=== PATIENT | female | born 1990 | race Caucasian/White ===

== ENCOUNTER 2019-01-04 19:48 | Emergency (ER) | payer OTHER ==
[2019-01-04] MEDS ORDERED: diphenhydrAMINE 25 MG CAPSULE PO STA (21:49)
--- NOTE | 2019-01-04 21:52 | ED Physician Documentation ---
PD HPI SKIN - Stated complaint Stated Complaint: BITES ON ARMS/SWELL/HOT PX/NAUSEA - Chief complaint Chief Complaint: Allergic Rx - History obtained from History obtained from: Patient - History of Present Illness Timing - onset: Yesterday Timing - duration: Days (1.5) Severity Comments: moderate Location: RUE, LUE (both forearms) Quality / character: Itchy, Painful, Swelling Improved by: Other (nothing) Associated symptoms: No: Fever, Myalgias, Joint pain, Headache, Facial swelling, Dyspnea, Abd pain, N/V/D, Urinary sx Contributing factors: Insect bite /sting (thinks she was stung by an insect outside) Similar symptoms before: Has not had sx before Recently seen: Not recently seen - Treatment prior to arrival Treatment prior to arrival: Tried topical hydrocortisone Review of Systems Ten Systems: 10 systems reviewed and negative Constitutional: denies: Fever, Chills Throat: denies: Sore throat Cardiac: denies: Chest pain / pressure Respiratory: denies: Dyspnea, Wheezing GI: denies: Abdominal Pain, Nausea, Vomiting, Diarrhea Skin: reports: Rash, Bite / sting Musculoskeletal: reports: Extremity pain, Extremity swelling, Reviewed and negative. denies: Joint pain, Joint swelling Neurologic: denies: Generalized weakness, Focal weakness, Numbness Immunocompromised: reports: Reviewed and negative PD PAST MEDICAL HISTORY - Past Medical History Past Medical History: No - Allergies Allergies/Adverse Reactions: Allergies Allergy/AdvReac Type Severity Reaction Status Date / Time morphine Allergy Anaphylaxis Verified 01/04/19 19:54 PD ED PE NORMAL - Vitals Vital signs reviewed: Yes - General General: Alert and oriented X 3, No acute distress, Well developed/nourished - HEENT HEENT: Atraumatic, PERRL, Moist mucous membranes, Pharynx benign, Dentition benign, Other (no mouth swelling or lip swelling, no stridor) - Neck Neck: Supple, no meningeal sign - Cardiac Cardiac: RRR, No murmur, No gallop, No rub - Respiratory Respiratory: No respiratory distress, Clear bilaterally - Abdomen Abdomen: Soft, Non tender, Non distended - Female Female : Deferred - Rectal Rectal: Deferred - Derm Derm: Warm and dry - Extremities Extremities: Normal ROM s pain - Neuro Neuro: Alert and oriented X 3 Eye Opening: Spontaneous Motor: Obeys Commands Verbal: Oriented GCS Score: 15 - Psych Psych: Normal mood, Normal affect PD ED PE EXPANDED - Derm Derm: Other (erythematous rash that is circular without any annular clearing bilaterally on both forearms. No other rash. Rash is blanching. Mild tenderness. ) Results - Vitals Vitals: Vital Signs - 24 hr 01/04/19 01/04/19 19:54 22:01 Temperature 36.5 C Heart Rate 91 79 Respiratory 14 18 Rate Blood Pressure 133/79 H 123/77 O2 Saturation 98 99 Oxygen O2 Source Room air PD MEDICAL DECISION MAKING - ED course Complexity details: considered differential, d/w patient ED course: ddx- localized skin reaction, skin infection, cellulitis, abscess, insect bite vs sting 28 y/o F with 2 local areas of redness on bilateral forearms that she reports is from a sting. The areas are moderately red, no fluctuance, no signs of infection. This is not over the joint but the mid forearm. SHe has no other rash and no signs or symptoms of anaphylaxis or angioedema. Advised her to continue supportive care at home and outpt f/u. Departure - Departure Disposition: Home, Self Care Clinical Impression: Sting of skin Condition: Stable Record reviewed to determine appropriate education?: Yes Instructions: ED Bite Sting Insect Gen Allergic React Follow-Up: Nicolas Cunningham MD [Primary Care Provider] - Comments: You are having a local skin reaction to a bug bite or sting. There were no signs of anaphylaxis or systemic allergic reaction. You can use topical hydrocortisone and oral benadryl 25mg every 6 hours for itching and swelling and to reduce redness. You can also use topical benadryl. Both are available over the counter. Return to the ED if you develop mouth swelling or difficulty breathing. Discharge Date/Time: 01/04/19 22:12
[2019-01-04 22:01] VITALS: BP 123/77
== END 2019-01-04 22:12 | disposition home or self-care (01) ==
LOC: ED 19:48
DX: S50.862A Insect bite (nonvenomous) of left forearm, initial encounter (principal); S50.861A Insect bite (nonvenomous) of right forearm, initial encounter; W57.XXXA Bitten or stung by nonvenomous insect and other nonvenomous arthropods, initial encounter
CPT/HCPCS: 99282; 99284; A9270